=== PATIENT | male | born 1985 | race Caucasian/White ===

== ENCOUNTER 2024-06-06 16:46 | Emergency (ER) | payer OTHER, SELFPAY ==
[2024-06-06 17:11] VITALS: BP 139/97; PULSE 118; O2SAT 99; BMI 27.5
--- NOTE | 2024-06-06 17:55 | CT_ITS ---
The [address] [address] Patient Name: SHRADDHA IBANEZ MRN: [id number] date: 1985 Sex: M Assigned Patient Location: ER Current Patient Location: ER Accession/Order Number: [id number] Exam Date: 06/06/2024 18:21 Report Date: 06/06/2024 19:31 At the request of: JEREMY MURRAY Procedure: CT facial bones w con EXAM: CT facial bones w con HISTORY: orbital cellulitis COMPARISON: None. TECHNIQUE: CT facial bones/soft tissues with IV contrast 100 mL Omnipaque 300. Axial scans with reformatted coronal sagittal images. Individualized radiation dose reduction used for this exam. FINDINGS: No facial soft tissue thickening fluid or enhancing collection or evidence of abscess. No definite evidence of intraorbital or periorbital cellulitis. Normal-appearing globes and retrobulbar tissues. Normal vascular enhancement. No fracture or bony abnormality. No sinus fluid or thickening. No abnormality in the visualized brain. Visualized nasopharyngeal and upper neck tissues unremarkable scattered small lymph nodes seen. No airway encroachment. CT/CT facial bones w con IMPRESSION: Negative facial CT without evidence of cellulitis, fluid collection or abscess.. Electronically authenticated by: RACHAEL PONCE Date: 06/06/2024 19:31
--- NOTE | 2024-06-06 17:56 | ED_ITS ---
HPI HPI - General Adult General Chief complaint: Eye Problems Stated complaint: EYE Time Seen by Provider: 06/06/24 17:47 Source: patient Limitations: no limitations History of Present Illness HPI narrative: Patient is a 38-year-old male who presents to the emergency department for worsening redness and tearing of his bilateral eyes over the last 5 days. He was initially seen by his primary care provider at urgent care who started him on Augmentin and antibiotic eyedrops. He states he continues to have some blurry vision, clear tearing with crusting and drainage of the eyelashes in the morning on waking. He feels as though his eyelids are swollen. He has had no loss of vision or double vision. No foreign body exposure. He states urgent care stained his eyes to look for foreign bodies. He has a grainy sensation to the eyes. He does not wear contact lenses. Related Data Home Medications ?Medication ?Instructions ?Recorded ?Confirmed amoxicillin 875 mg-potassium 1 tab PO Q12H 06/06/24 06/06/24 clavulanate 125 mg tablet polymyxin B sulfate 10,000 1 drp ophthalmic (eye) Q3H 06/06/24 06/06/24 unit-trimethoprim 1 mg/mL eye drops Previous Rx's ?Medication ?Instructions ?Recorded hydroxyzine HCl 25 mg tablet 25 mg PO Q6H PRN itching #20 tabs 06/06/24 methylprednisolone 4 mg tablets in See Rx Instructions .Route 06/06/24 a dose pack (Medrol (Cheko)) .COMPLEX #21 ea Allergies Allergy/AdvReac Type Severity Reaction Status Date / Time No Known Drug Allergies Allergy Verified 06/06/24 17:10 Opioid HPI Opioid Management Most Recent Opioid Data: No Data to Display Review of Systems ROS Constitutional Denies: fever or chills Eyes Reports: change in vision, blurry vision, eye discharge and increased production of tears Ears, nose, mouth, and throat Denies: throat pain or nasal congestion Respiratory Denies: shortness of breath or cough Gastrointestinal Denies: nausea or vomiting Integumentary/Breast Denies: rash Neurological Denies: numbness in extremities or weakness in extremities Hematologic/Lymphatic Denies: easy bruising or easy bleeding PFSH PFSH Social History Little interest or pleasure in doing things: not at all Feeling down, depressed, or hopeless: not at all Exam Narrative Exam Narrative: Gen.: Awake, alert, in no distress Head: Normocephalic, atraumatic ENT: Moist mucous membranes, conjunctive of the bilateral eyes is injected with clear tearing. Yellow drainage noted to the right lower eyelid/eyelashes. Bilateral upper and lower eyelids are minimally edematous with no significant erythema and patient has normal extraocular muscle motion. Respiratory: No respiratory distress Extremities: Moves extremities equally Psych: Normal mood and affect Neuro: No focal neuro deficit Skin: Warm, dry, intact Constitutional Vital Signs, click to edit/add: Last Vital Signs Pulse 118 H 06/06/24 17:11 Resp 18 06/06/24 17:11 BP 139/97 H 06/06/24 17:11 Pulse Ox 99 06/06/24 17:11 O2 Del Method Room Air 06/06/24 17:11 Course Vital Signs Vital signs: Vital Signs Pulse Rate 118 H 06/06/24 17:11 Respiratory Rate 18 06/06/24 17:11 Blood Pressure 139/97 H 06/06/24 17:11 Pulse Oximetry 99 06/06/24 17:11 Oxygen Delivery Method Room Air 06/06/24 17:11 Pulse Rate 118 H 06/06/24 17:11 Respiratory Rate 18 06/06/24 17:11 Blood Pressure 139/97 H 06/06/24 17:11 Pulse Oximetry 99 06/06/24 17:11 Oxygen Delivery Method Room Air 06/06/24 17:11 Medical Decision Making MDM Narrative Medical decision making narrative: CT of the facial bones is unremarkable. Patient reevaluated by attending physician, we feel the patient may have an allergic or inflammatory conjunctivitis. He was started on steroids, antihistamines and instructed to use tobramycin eyedrops instead of polymyxin. Follow-up with ophthalmology as instructed by urgent care and return to the ER if symptoms change or worsen SHARED APC VISIT, PHYSICIAN ATTESTATION: [id number] I performed a substantive part of the MDM during the patient?s E/M visit. I personally evaluated and examined the patient. I personally made or approved the documented management plan and acknowledge its risk of complications. Medical Records Medical records reviewed: Yes I reviewed the patient's medical records Imaging Data CT scan - head: Attestation: I have reviewed the pertinent imaging results. Radiologist's impression: ITS Impressions Facial Bones CT 06/06/24 17:55 IMPRESSION: Negative facial CT without evidence of cellulitis, fluid collection or abscess.. Electronically authenticated by: RACHAEL PONCE Date: 06/06/2024 19:31 Discharge Plan Discharge Chief Complaint: Eye Problems Clinical Impression: Conjunctivitis Patient Disposition: Home, Self-Care Time of Disposition Decision: 19:43 Condition: Good Prescriptions / Home Meds: New hydroxyzine HCl 25 mg tablet 25 mg PO Q6H PRN (Reason: itching) Qty: 20 0RF methylprednisolone [Medrol (Cheko)] 4 mg tablets,dose pack See Rx Instructions .ROUTE .COMPLEX Qty: 21 0RF Rx Instructions: Taper as directed No Action polymyxin B sulf-trimethoprim 10,000 unit- 1 mg/mL drops 1 drp OPHTHALMIC (EYE) Q3H amoxicillin-pot clavulanate 875-125 mg tablet 1 tab PO Q12H Patient Comments: started on Friday Print Language: Bulgarian Instructions: Conjunctivitis (ED) Additional Instructions: Please stop polymyxin eye drops and use tobramycin eye drops - 2 drops in both eyes 3-4 times a day for 5 days Referrals: BRENDA COLVIN [Physician] - As soon as possible Physician,Non-Staff, [Primary Care Provider] - 1 week
[2024-06-06] MEDS: METHYLPREDNISOLONE SOD SUCC PF 125 MG/2 ML VIAL IVP (18:10)
[2024-06-06] MEDS: KETOROLAC TROMETHAMINE 30 MG/ML VIAL IVP (18:10)
[2024-06-06] MEDS: TOBRAMYCIN 0.3% OP SOL 100 DROP/5 ML BOTTLE OP (19:51)
== END 2024-06-06 20:19 | disposition home or self-care (01) ==
PROVIDERS: Emergency Provider Emergency Medicine
DX: H10.9 Unspecified conjunctivitis (principal)
CPT/HCPCS: 70487; 96374; 96375; 99285; J1885; J2919; Q9967